=== PATIENT | male | born 1950 | race Caucasian/White ===

== ENCOUNTER → 2017-01-27 | Outpatient (CLI) | payer OTHER, MEDICARE ==
[~2017-01-27] VITALS: Ht 175.3 cm; Wt 81.7 kg
[~2017-01-27] MED LIST: FISH OIL 1,0001 EAC7 PO; GINSENG100 M2 PO; PRILOSEC20 MG PO; ZESTRIL20 MG PO
== END | disposition home or self-care (01) ==
LOC: AMB 11:25 → OPR 11:30 → AMB 12:30
PROC: 0DJ08ZZ Inspection of Upper Intestinal Tract, Via Natural or Artificial Opening Endoscopic (ICD-10-PCS; principal; 2017-01-27)
DX: R13.10 Dysphagia, unspecified (principal); K21.9 Gastro-esophageal reflux disease without esophagitis; I10 Essential (primary) hypertension; R73.03 Prediabetes; Z85.46 Personal history of malignant neoplasm of prostate; Z82.5 Family history of asthma and other chronic lower respiratory diseases
CPT/HCPCS: J2250; J3010